=== PATIENT | female | born 1945 | race Caucasian/White ===

== ENCOUNTER → 2021-10-24 | Outpatient (CLI) | payer MEDICARE ==
--- NOTE | 2021-10-24 16:02 | XR ---
Thoracic spine HISTORY: M 52.6 Frontal and lateral views of the thoracic spine on 3 images There is loss of vertebral body height at the lower thoracic vertebral body levels at T9, T10, T12. B one mineralization is reduced. No significant retropulsion is evident. There is multilevel spondylosi s. Some loss of disc height present at intervertebral levels the midthoracic levels. Aorta is dense a nd possibly ectatic. There are coronary artery calcifications present. Question a lung nodule superim posed over the second anterior interspace seen on the frontal view. Degenerative disc changes noted i ncidentally in the cervical spine. IMPRESSION: Osteoporotic compression fractures, consider CT, MRI for additional evaluation. Possible lung nodule. Additional findings above, consider dedicated chest CT.
== END | disposition home or self-care (01) ==
LOC: RADXRMAIN 15:06
PROVIDERS: ATTEND Internal Medicine
DX: M80.88XA Other osteoporosis with current pathological fracture, vertebra(e), initial encounter for fracture (principal)
CPT/HCPCS: 72070

== ENCOUNTER → 2021-12-01 | Outpatient (CLI) | payer MEDICARE, OTHER ==
--- NOTE | 2021-12-04 08:03 | PE ---
EXAMINATION TYPE: PET CT fusion skull to thigh DATE OF EXAM: 12/01/2021 COMPARISON: Chest CT November 13, 2021 HISTORY: Solitary pulmonary nodule, abnormal CT. TECHNIQUE: Following the intravenous administration of 7.98 mCi of F-18 FDG, whole body images are p erformed from the skull base to the midthigh. Images are reviewed on the computer in the coronal, ax ial, and sagittal planes. Reconstructed rotating images are created on independent workstation and r eviewed on the computer. A localization and attenuation correction CT is performed in conjunction w ith the PET scan. Blood glucose level equals 107. SCAN: Initial Scan FINDINGS: SKULL BASE AND NECK: No areas of abnormal hypermetabolic uptake. CHEST, MEDIASTINUM, AND HILAR REGION: Mild underlying emphysematous change is redemonstrated. There i s abnormal 1.7 cm right upper lobe nodule with abnormal hypermetabolic uptake, max SUV is 3.97. No ad ditional areas of abnormal hypermetabolic uptake. ABDOMEN AND PELVIS: No adrenal masses. Normal excretion. Mild nonspecific bowel uptake in the pelvis. No areas of abnormal hypermetabolic uptake. OSSEOUS STRUCTURES: No areas of abnormal hypermetabolic uptake. OTHER CT: Nasal septum is deviated to left of midline. Moderate to severe calcified plaque bilateral carotid bulb level. Cardiomegaly with severe three-vessel coronary artery calcification redemonstrated. Moderate to sever e calcified plaque of the aorta extends into branch vessels. Sigmoid colonic diverticula. Moderate rectal fecal prominence. Poorly distended bladder. Abnormal non dependent air, correlate for recent Paz catheterization otherwise other etiologies such as fistula needs to be considered. IMPRESSION: Abnormal hypermetabolic uptake in the 1.7 cm right upper lobe nodule. No suspicious thora cic adenopathy or metastatic disease seen. Attention to the urinary bladder as noted above.
== END | disposition home or self-care (01) ==
LOC: RADPETMAIN 16:46
PROVIDERS: ATTEND Internal Medicine
DX: R91.1 Solitary pulmonary nodule (principal)
CPT/HCPCS: 78815; A9552

== ENCOUNTER 2021-12-21 12:55 | Day surgery (SDC) | payer MEDICARE, OTHER ==
[2021-12-19 13:20] VITALS: BMI 19.9
[~2021-12-21 12:55] MED LIST: ALBUTEROL NEB (CONC) 2.5 MG/0.5 ML INHALATION ONE; DEXAMETHASONE SOD PHOSPHATE 4 MG/ML 1 ML VIAL IV ONE; LACTATED RINGERS 1,000 ML IV SCH; LIDOCAINE 1% (10MG/ML) FOR IV START INTRADERMA PRN; LIDOCAINE 2% (PF) 20 MG/ML 5 ML VIAL INHALATION ONE; LIDOCAINE VISCOUS 300 MG/15 ML CUP MUCOUS MEM ONE; ONDANSETRON 4 MG/2 ML VIAL IVP ONE; SODIUM CHLORIDE 0.9% 1,000 ML IV SCH
[2021-12-21] MEDS ORDERED: ROCURONIUM 10 MG/ML (5 ML VIAL) IV ONE (14:48)
[2021-12-21] MEDS ORDERED: LIDOCAINE 1% INJ 10MG/ML (20 ML MDV) ONE (14:48)
[2021-12-21] MEDS ORDERED: SUCCINYLCHOLINE CHLORIDE 100 MG/5 ML SYR IV ONE (14:48)
[2021-12-21] MEDS ORDERED: NEOSTIGMINE 1 MG/ML 10 ML VIAL ONE (14:48)
[2021-12-21] MEDS ORDERED: GLYCOPYRROLATE 0.2 MG/ML 2 ML VIAL ONE (14:48)
[2021-12-21] MEDS ORDERED: fentaNYL (PF) 50 MCG/ML 2 ML AMP ONE (14:48)
[2021-12-21] MEDS ORDERED: PROPOFOL 10 MG/ML 20 ML VIAL IV ONE (14:48)
--- NOTE | 2021-12-21 16:02 | P.PCN ---
Date of Procedure: 12/21/21 Preoperative Diagnosis: RUL nodule Postoperative Diagnosis: RUL nodule Procedure(s) Performed: Navigational bronchoscopy, TBBX of the RUL nodule EBUS, TBNA of the right paratracheal lymph node Anesthesia: ROLANDOA Surgeon: Sai Lobo [facility] Lpn #1: Veronica Kelley Estimated Blood Loss (ml): 5 Pathology: other Condition: stable Disposition: same day Operative Findings: After obtaining the consent the patient was taken to the OR suite he was intubated and put on MV by anesthesia then the scope was advanced to the ET tube until the Trachea was seen and it was normal and then the fausto appears normal then the scope advanced to the left main and GREG LB1-LB3 were seen and no endobronchial lesions were seen then the scope advanced to the lingula and the LB4 and LB5 were seen and no endobronchial lesions were seen the scope retracted and advanced to the left lower lobes LB6 to LB12 were seen one by one and no endobronchial lesions, then the scope was retracted back to the fausto and advanced to the Right main and RUL RB1 and RB2 and RB3 were seen one by one and no endobronchial lesions were seen the scope then retracted and advanced to the BI and RML RB4 and RB5 were seen and no endobronchial lesions were seen then it was retracted and advanced to the RLL RB6 to RB12 were seen one by one and no endobronchial lesions. Using navigational guidance, the flexible bronchoscope was directed to the anterior segment of the right upper lobe. After accessing the basal segments, appropriate segments leading to the right upper lobe pulmonary nodule was identified and several transbronchial biopsies were obtained from the right upper lobe nodule. There was some the bronchial bleeding encountered that was less than 5 mL and the endobronchial stopped spontaneously without any intervention. Following that, the endobronchial ultrasound was inserted. Mediastinal lymph nodes were inspected and several visualized lymph nodes within the mediastinum were less than 5 mm in size. The largest mediastinal was around 8-9 mm in size and the right paratracheal area. Transbronchial aspirate of the right paratracheal lymph node was done with the was guidance and a total of 2 passes were obtained. The endobronchial ultrasound was removed. regular bronchoscope was inserted in the therapeutic airway suctioning was done. Patient was extubated and transferred recovery in stable condition. Chest x-rays to follow.
[2021-12-21 16:36] VITALS: TEMP 98
--- NOTE | 2021-12-21 16:50 | XR ---
EXAMINATION TYPE: XR chest 1V DATE OF EXAM: 12/21/2021 4:32 PM COMPARISON: CT chest 11/20/2021 TECHNIQUE: XR chest 1V Frontal view of the chest. CLINICAL INDICATION:Female, 76 years old with history of post bronch; FINDINGS: Lungs/Pleura: Persistent right mid lobe hazy airspace opacities. No evidence of pneumothorax. Right m id lobe mass seen on same-day CT chest less well-defined. There is flattening of diaphragms with incr eased lucency within the left upper lung apex. Pulmonary vascularity: Unremarkable. Heart/mediastinum: Cardiomediastinal silhouette is enlarged and stable. Atherosclerosis of the aorti c arch. Musculoskeletal: No acute osseous pathology. IMPRESSION: 1. No evidence of pneumothorax persistent right upper lobe airspace opacities, masses seen on CT ches t same day is less well appreciated given the hazy lung opacities. 2. COPD changes.
[2021-12-21 17:20] VITALS: BP 165/83
[2021-12-21 17:33] VITALS: PULSE 72; RESP 18
--- NOTE | 2021-12-21 21:46 | CT ---
EXAMINATION TYPE: CT Chest justina Yates Protocol DATE OF EXAM: 12/21/2021 COMPARISON: CT dated 11/13/2021 HISTORY: Navigational Bronchoscopy. CT DLP: 541 mGycm Automated exposure control for dose reduction was used. FINDINGS: Right upper lobe irregular lesion with spiculated margin likely representing a lung cancer measuring 14 x 15 mm, not significantly progressed compared to the previous. Slightly more inferior and central right upper lobe irregular opacity measuring 11 mm, not appreciated previously and could be metastat ic or due to inflammatory/infectious process. Minimal atelectasis in the right middle lobe. Left basa l subsegmental pulmonary atelectasis. Bronchial impaction is seen in the left lower lobe. Patent trachea and main bronchi. Minimal bilatera l pleural reaction. Extensive arterial atherosclerotic calcifications with coronary arterial calcific ations. Cardiomegaly, for correlation with echocardiographic results. No pericardial effusion. Subcen timeter mediastinal lymph nodes, nonspecific. Stable left adrenal adenoma. Progressive sclerotic mancia ges of the fractured T10 vertebral body with stable fractured T12, L1 and L2 vertebral bodies. IMPRESSION: CT for navigation bronchoscopy, details above.
== END 2021-12-21 17:57 | disposition home or self-care (01) ==
LOC: ORWHC2ENDO 12:55
PROVIDERS: ATTEND Internal Medicine Critical Care Medicine
DX: J42 Unspecified chronic bronchitis (principal); G89.29 Other chronic pain; M54.9 Dorsalgia, unspecified; R63.4 Abnormal weight loss; F17.210 Nicotine dependence, cigarettes, uncomplicated; I48.91 Unspecified atrial fibrillation; Z86.16 Personal history of COVID-19; Z87.01 Personal history of pneumonia (recurrent); Z82.49 Family history of ischemic heart disease and other diseases of the circulatory system; Z90.710 Acquired absence of both cervix and uterus; Z97.2 Presence of dental prosthetic device (complete) (partial); Z98.890 Other specified postprocedural states; Z83.6 Family history of other diseases of the respiratory system; Z80.8 Family history of malignant neoplasm of other organs or systems; Z79.899 Other long term (current) drug therapy; Z79.51 Long term (current) use of inhaled steroids
CPT/HCPCS: 88305; 71045; 71250; 31628; 31627; 31652; J2710; J2001; J3010; J0330; J2704; 31625

== ENCOUNTER → 2022-04-16 | Outpatient (CLI) | payer MEDICARE, OTHER ==
[2022-04-16 11:18] LABS: African American GFR (CKD) >90 (>60 ml/min/1.73 sqM); Blood Urea Nitrogen 17 mg/dL (7-17); Non-African American GFR(CKD) >90 (>60 ml/min/1.73 sqM)
--- NOTE | 2022-04-16 15:46 | CT ---
EXAMINATION TYPE: CT chest w con DATE OF EXAM: 04/16/2022 COMPARISON: CT dated 12/21/2021 HISTORY: Solitary pulmonary nodule CT DLP: 157.9 mGycm Automated exposure control for dose reduction was used. TECHNIQUE: CT scan of the chest is performed with IV Contrast, patient injected with 70 mL of Isovue 300. FINDINGS: LUNGS: Grossly stable irregular lesion in the right upper lobe measuring 13 x 15 mm. The more superio r irregular infiltration is slightly smaller measuring 8mm compared to 11 mm previously. Stable subse gmental atelectasis, focal infiltration and groundglass opacity in the middle lobe. Minimal left basa l posterior pulmonary atelectasis. No new suspicious or progressive lung lesion. Patent trachea and m ain bronchi. No pleural effusion MEDIASTINUM: There are no greater than 1 cm hilar or mediastinal lymph nodes. Stable subcentimeter me diastinal lymph nodes. Persistent severe cardiomegaly. Extensive coronary and arterial atheroscleroti c calcifications. No pericardial effusion is seen. OTHER: Stable left adrenal adenoma. Osteopenia. Stable multilevel lower thoracic and upper lumbar ve rtebral body collapse. IMPRESSION: Stable irregular right upper lobe nodule with a smaller more superior irregular infiltration as descr ibed above. No new suspicious or progressive lung lesion. No progressive lymph nodes in the chest. Ot her findings as described above.
== END | disposition home or self-care (01) ==
LOC: RADCTMAIN 10:42
PROVIDERS: ATTEND Internal Medicine
DX: R91.8 Other nonspecific abnormal finding of lung field (principal)
CPT/HCPCS: 82565; 84520; 71260; 36415; Q9967

== ENCOUNTER → 2022-08-02 | Outpatient (CLI) | payer MEDICARE, OTHER ==
[2022-08-02 18:33] LABS: African American GFR (CKD) 100.5 (60.0-200.0); Anion Gap 4.5 mmol/L (10.00-18.00); Carbon Dioxide 30.5 mmol/L (20.0-27.5); HCT 45.4 % (37.2-46.3); HGB 14.5 g/dL (12.0-15.0); MCH 30.1 pg (27.0-32.0); MCHC 31.9 g/dL (32.0-37.0); MCV 94.2 fL (80.0-97.0); Mean Platelet Volume 10.4 fL (9.5-12.2); NRBC Per 100 WBC 0 /100 WBCS (0.0-0.0); Non-African American GFR(CKD) 86.7 (60.0-200.0); Platelet Count 197 X 10*3/uL (140-440); Potassium 4.1 mmol/L (3.5-5.5); RBC 4.82 X 10*6/uL (4.10-5.20); RDW 14.4 % (11.5-14.5); WBC 6.49 X 10*3/uL (4.50-10.00)
== END | disposition home or self-care (01) ==
LOC: LABPAT 12:34
PROVIDERS: ATTEND Internal Medicine Interventional Cardiology
DX: Z01.812 Encounter for preprocedural laboratory examination (principal); I25.10 Atherosclerotic heart disease of native coronary artery without angina pectoris
CPT/HCPCS: 36415; 80051; 82565; 84520; 85027

== ENCOUNTER 2022-08-06 06:18 | Day surgery (SDC) | payer MEDICARE, OTHER ==
[~2022-08-06 06:18] MED LIST changes: -ALBUTEROL NEB (CONC) 2.5 MG/0.5 ML INHALATION ONE; +ALPRAZolam 0.25 MG TAB PO PRN; +ALPRAZolam 0.5 MG TAB PO PRN; -DEXAMETHASONE SOD PHOSPHATE 4 MG/ML 1 ML VIAL IV ONE; +HEPARIN SODIUM,PORCINE 10,000 UNIT in SODIUM CHLORIDE 0.9% 1,000 ML IRRIGATION PRN; +HEPARIN SODIUM,PORCINE 2,500 UNIT in SODIUM CHLORIDE 0.9% 250 ML IRRIGATION PRN; -LACTATED RINGERS 1,000 ML IV SCH; -LIDOCAINE 1% (10MG/ML) FOR IV START INTRADERMA PRN; -LIDOCAINE 2% (PF) 20 MG/ML 5 ML VIAL INHALATION ONE; -LIDOCAINE VISCOUS 300 MG/15 ML CUP MUCOUS MEM ONE; +NITROGLYCERIN SL TABS 0.4 MG TAB SUBLINGUAL PRN; -ONDANSETRON 4 MG/2 ML VIAL IVP ONE; -SODIUM CHLORIDE 0.9% 1,000 ML IV SCH; +SODIUM CHLORIDE 0.9% 1,000 ML in EMPTY BAG 1 BAG IV SCH
[2022-08-06 06:58] VITALS: TEMP 97.7
[2022-08-06] MEDS ORDERED: ASPIRIN 325 MG TAB PO ONE (07:00)
[2022-08-06] MEDS ORDERED: ATORVASTATIN 80 MG TAB PO ONE (07:00)
[2022-08-06] MEDS ORDERED: VERAPAMIL 2.5 MG/ML 2 ML AMP ONE (07:20)
[2022-08-06] MEDS: LIDOCAINE 1% INJ 10MG/ML (30 ML VIAL-PF) IV ONE ×2 (07:41→07:49)
[2022-08-06] MEDS ORDERED: MIDAZOLAM 2 MG/2 ML VIAL IV ONE (07:41)
[2022-08-06] MEDS ORDERED: fentaNYL (PF) 50 MCG/ML 2 ML AMP ONE (07:52)
[2022-08-06] MEDS ORDERED: fentaNYL (PF) 50 MCG/ML 2 ML AMP IV ONE (07:53)
[2022-08-06] MEDS ORDERED: IOPAMIDOL-370 125ML BTL INJ ONE (08:14)
[2022-08-06] MEDS ORDERED: RX INFO: IV CONTRAST WAS GIVEN 1 EACH MISC MISCELLANE PRN (08:17)
--- NOTE | 2022-08-06 08:25 | P.PCN ---
Date of Procedure: 08/06/22 Operative Findings: CARDIAC CATHETERIZATION PERFORMING PHYSICIAN: Johnny Mcmahan MD, RPVI PROCEDURE PERFORMED: 1. Selective right and left coronary angiogram 2. Left heart catheterization 3. Selective right common femoral artery angiogram INDICATION: This is a 77-year-old female patient was significant smoking as well as multiple risk factors for coronary artery disease was seen in the office which was symptomatic. She underwent myocardial perfusion imaging stress test and that showed moderate area of reversibility and in the light of that a heart catheterization was advised. Also she underwent an echocardiogram which revealed severe cardiomyopathy. COMPLICATION: None APPROACH: Right common femoral artery LEVEL OF SEDATION: Moderate to severe elevation of legs of 34 minutes PROCEDURE DESCRIPTION: After obtaining an informed consent, the patient was brought to cardiac concrete mixing plant laborer. Local anesthesia was performed using lidocaine subcutaneously. The right common femoral artery was cannulated using Seldinger technique, the guidewire passed easily, following that we advanced a 6 [place] sheath dilator assembly, the wire and dilator were removed and sheath was flushed. Selective right and left coronary angiogram using a 6-[place] JR4 and JL catheters. Following that we did left heart catheterization using 6-[place] pigtail catheter. The procedure was completed there was no complication. SELECTIVE CORONARY ANGIOGRAM: The right coronary artery: Large caliber vessel and a dominant vessel. The RCA is chronically occluded by the ostium and fills by collateral from the left coronary system. The RCA is extremely calcified Left main: Is calcified was mild disease only. The left circumflex: Large caliber vessel. The proximal LCx has mild disease only and gives rises into an OM1 which appeared to have mild disease only. The left circumflex in the midportion has critical lesion appeared to be in the range of 90-95%. The LCx is extremely calcified. Distally gives rises into 1 to which is a moderate caliber vessel appears to be angiographically normal The left anterior descending artery: The LAD is a large caliber vessel. The LAD is extremely calcified. The LAD has mild disease in the proximal portion. In the midportion by the bifurcation of a large diagonal branch has a lesion appeared to be in the range of 50-60%. The LAD distally appears to be angiographically normal. HEMODYNAMICS: The LVEDP was about 10 mmHg was no significant gradient across aortic valve CONCLUSION: 1. Extremely calcified right and left coronary system 2. 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 The RCA fills by collateral from the left coronary system 3. Critical disease involving the mid LCx 4. Intermediate lesion involving the mid LAD POSTPROCEDURE MANAGEMENT: Consider FFR of the LAD. If that ischemic consider refer the patient for bypass surgery. If the LAD is nonischemic consider proceeding with PCI of the LCx with adjunctive use of atherectomy. Subsequently the patient continues to be symptomatic consider proceeding with PCI of the [employer] the right coronary
[2022-08-06] MEDS ORDERED: SODIUM CHLORIDE 0.9% 1,000 ML IV SCH (08:30)
[2022-08-06 18:09] VITALS: BP 172/77; PULSE 78; RESP 16
== END 2022-08-06 14:27 | disposition home or self-care (01) ==
LOC: CATHCVL 06:18
PROVIDERS: ATTEND Internal Medicine Interventional Cardiology
DX: I25.10 Atherosclerotic heart disease of native coronary artery without angina pectoris (principal); I25.110 Atherosclerotic heart disease of native coronary artery with unstable angina pectoris; I25.84 Coronary atherosclerosis due to calcified coronary lesion; I25.82 Chronic total occlusion of coronary artery; I48.19 Other persistent atrial fibrillation; I25.5 Ischemic cardiomyopathy; I08.0 Rheumatic disorders of both mitral and aortic valves; I10 Essential (primary) hypertension; Z82.49 Family history of ischemic heart disease and other diseases of the circulatory system; J44.9 Chronic obstructive pulmonary disease, unspecified; F17.200 Nicotine dependence, unspecified, uncomplicated; Z79.01 Long term (current) use of anticoagulants; Z79.899 Other long term (current) drug therapy
CPT/HCPCS: 93458; C1769 ×4; C1894 ×2; J2250; J2001; J3010; Q9967

== ENCOUNTER 2022-08-22 06:49 | Inpatient (IN) | payer MEDICARE, OTHER ==
[2022-08-22] MEDS ORDERED: ALPRAZolam 0.5 MG TAB PO PRN (06:51)
[2022-08-22] MEDS ORDERED: ALPRAZolam 0.25 MG TAB PO PRN (06:51)
[2022-08-22] MEDS ORDERED: SODIUM CHLORIDE 0.9% 1,000 ML in EMPTY BAG 1 BAG IV SCH (06:51)
[2022-08-22] MEDS ORDERED: NITROGLYCERIN SL TABS 0.4 MG TAB SUBLINGUAL PRN (06:51)
[2022-08-22] MEDS ORDERED: ASPIRIN 325 MG TAB PO STA (06:51)
[2022-08-22 07:16] LABS: Basophils % (A) 0 %; Eosinophils % (A) 1 %; HCT 47.8 % (34.0-46.0); HGB 15.9 gm/dL (11.4-16.0); Lymphocytes # (A) 1.1 k/uL (1.0-4.8); Lymphocytes % (A) 16 %; MCH 31.1 pg (25.0-35.0); MCHC 33.4 g/dL (31.0-37.0); MCV 93.2 fL (80.0-100.0); Mean Platelet Volume 8.4; Monocytes # (A) 0.3 k/uL (0-1.0); Monocytes % (A) 4 %; Neutrophils # (A) 5.5 k/uL (1.3-7.7); Neutrophils % (A) 77 %; Platelet Count 206 k/uL (150-450); RBC 5.12 m/uL (3.80-5.40); WBC 7.2 k/uL (3.8-10.6)
[2022-08-22 07:25] LABS: African American GFR (CKD) >90 (>60 ml/min/1.73 sqM); Anion Gap 11 mmol/L; Blood Urea Nitrogen 11 mg/dL (7-17); Carbon Dioxide 29 mmol/L (22-30); Chloride 101 mmol/L (98-107); Glucose 112 mg/dL (74-99); Non-African American GFR(CKD) >90 (>60 ml/min/1.73 sqM); Potassium 3.8 mmol/L (3.5-5.1); Sodium 141 mmol/L (137-145)
[2022-08-22] MEDS ORDERED: HEPARIN SODIUM 1,000 UN/ML (10ML VL) ONE (08:31)
[2022-08-22] MEDS: MIDAZOLAM 2 MG/2 ML VIAL IV ONE ×3 (08:33→09:19)
[2022-08-22] MEDS ORDERED: LIDOCAINE 1% INJ 10MG/ML (30 ML VIAL-PF) SQ ONE (08:33)
[2022-08-22] MEDS ORDERED: HYDROmorphone 0.5 MG/0.5 ML SYRINGE IVP ONE (08:38)
[2022-08-22] MEDS: HEPARIN SODIUM 1,000 UN/ML (10ML VL) IV ONE ×3 (08:43→10:04)
[2022-08-22] MEDS ORDERED: fentaNYL (PF) 50 MCG/ML 2 ML AMP ONE (09:20)
[2022-08-22] MEDS ORDERED: fentaNYL (PF) 50 MCG/ML 2 ML AMP IV ONE (09:22)
[2022-08-22] MEDS ORDERED: niCARdipine 25 MG/10 ML VIAL ONE (09:40)
[2022-08-22] MEDS ORDERED: TICAGRELOR 90 MG TAB ONE (09:53)
[2022-08-22] MEDS ORDERED: TICAGRELOR 90 MG TAB PO ONE (09:55)
[2022-08-22] MEDS ORDERED: IOPAMIDOL-370 125ML BTL INJ ONE (10:26)
[2022-08-22] MEDS ORDERED: IOPAMIDOL-370 100ML BTL INJ ONE (10:32)
[2022-08-22] MEDS ORDERED: NON FORMULARY DRUG (Epinephrine [Primatene Mist] 11.7 GM Each) INHALATION PRN (10:44)
[2022-08-22] MEDS ORDERED: ATROPINE SULFATE 0.1 MG/ML 10ML SYRINGE IV PRN (10:45)
[2022-08-22] MEDS ORDERED: MAG HYDROX/AL HYDROX/SIMETH 30 ML CUP PO PRN (10:45)
[2022-08-22] MEDS ORDERED: RX INFO: IV CONTRAST WAS GIVEN 1 EACH MISC MISCELLANE PRN (10:45)
--- NOTE | 2022-08-22 10:59 | P.PCN ---
Date of Procedure: 08/22/22 Operative Findings: PERCUTANEOUS CORONARY INTERVENTION Performing physician Johnny Mcmahan M.D. Procedure Performed: 1. Successful stenting of the mid LAD using 3.0 x 18 mm Xience drug-eluting stent with an excellent angiographic results. 2. Successful stending of the mid LCx using 2.75 x 28 mm Xience drug-eluting stent with an excellent angiographic result. 3. Atherectomy of the left anterior descending artery 4. Atherectomy of the left circumflex coronary artery 5. Placement of Impella CP in the LV 6. FFR of the left anterior descending artery 7. Right common femoral artery angiogram 8. Ultrasound-guided access of the right common femoral artery Indication: This is a 77-year-old female patient was tach most recently with severe cardiomyopathy concerning for severe underlying coronary artery disease. She underwent a heart catheterization which revealed extremely calcified right and left coronary systems with chronic total occlusion of the RCA and critical disease involving the LCx and LAD. She is not a good surgical candidate giving her history of COPD as well as multiple comorbid conditions. In the light of that she was brought today to undergo PCI of the LCx and LAD Approach: Right common femoral artery Complications: None Level of Sedation: Moderate with a sedation length of 122 minute Procedure Discussion: After obtaining an informed consent the patient was brought to the cardiac cath lab radiology technician. The right common femoral artery was cannulated using micropuncture technique under ultrasound guidance, the micropuncture wire passed easily then I placed a 6-Namibian sheath. Before I placed a 6-Namibian sheath did selective right common femoral artery angiogram through the micropuncture sheath and that showed good position of the sheath in the right common femoral artery. At that point I placed a 6-Namibian sheath in the right common femoral artery. Anticoagulation was initiated using heparin with continuous ACT monitoring. Subsequently I decided to do one FFR of the LAD to assess the lesion in the LAD to see if flow- limiting or no before we decided to pursue with intervention on the LAD and before we place the Impella CAD. So after the Doppler wire was flushed and zeroed and after we equalized between the Doppler wire and the guiding catheter which was JL4 guiding catheter I did an iFR and that came in to be ischemic at 0.85. At that point I decided to intervene on the LAD lesion beside intervening on the LCx lesion. Because the patient ejection fraction is no I decided to place an Impella CP. At that point and after putting the Doppler wire and the guiding catheter from the left main coronary artery I did place 2 Perclose at 10:00 and 2:00 o'clock right common femoral artery. Subsequently I placed an 8- [place] sheath. After that I did exchange my 035 regular wire into a 35 stiff wire using JL4 guiding catheter we used before. Subsequently I did predilatation using 10-Namibian dilator and then 12-Namibian dilator and then I placed a 14-Namibian sheath under fluoroscopy guidance and the sheath was advanced all the way to the aorta under fluoroscopy guidance. At that point I did advance an 035 regular wire to the ascending aorta and then I advanced a pigtail catheter. Subsequently I did across the aortic valve. Then I did exchange my 035 wire into a 18 wire using the pigtail catheter then the pigtail catheter was withdrawn out. Then I did advance the Impella over the 018 wire to the LV where it was positioned in the mid left ventricle and no ectopy noted. Subsequently it was turned on. At that point anticoagulation was continues to be given based on the ACT. Subsequently I did access the 14-Namibian sheath using micropuncture needle, the micro-rupture wire passed easily then I placed a 6-Namibian sheath inside the 14-Namibian sheath. After that I did engage the left main using a CLS guiding catheter. I did wire the LAD using a run-through wire and the wire was positioned in the distal LAD and subsequently the wire was exchanged over the atherectomy wire using microcatheter. Atherectomy of the LAD was performed using the coronary geovani and using 3 runs under low speed. After that balloon angioplasty was performed using 2.5 mm shockwave balloon before I deployed 3.0 x 18 mm stent where the stent was positioned under fluoroscopy guidance and deployed under 18 natalie for 20 seconds. Postdilatation was performed using 4 mm noncompliant balloon. The following angiogram showed an excellent angiographic results for the LAD. For the left circumflex coronary artery I did wire the LCx using a whisper wire. At that point I did exchange the whisper wire into the atherectomy wire using the same microcatheter. Then after that I did atherectomy of the LCx again using 2 runs of slow speed. After that balloon angioplasty was performed using 2.5 mm balloon before I deployed 2.75 x 28 mm stent where the stent was positioned under fluoroscopy guidance and deployed under its nominal pressure. The final angiogram showed excellent angiographic results and the procedure was completed without any complication. Subsequently the Impella was pulled from the LV all the way outside the sheath then I did pull the 6-Namibian sheath from the 14-Namibian sheath and then I did a closed the groin using the 2 Perclose we placed at the beginning. By the end we achieved good hemostasis. Good pulse in the right groin and beneath the incision site. The procedure was completed without any complication Postprocedure Management: 1. The one antiplatelet therapy using aspirin and Brilinta for at least 6 months and preferably 12 month 2. Aggressive cholesterol control 3. Follow-up with a paced
[2022-08-22 14:20] VITALS: BMI 18.7
--- NOTE | 2022-08-22 14:27 | P.CNPUL ---
History of Present Illness Consult date: 08/22/22 Reason for consult: COPD Chief complaint: Status post stenting of mid LAD and left circumflex History of present illness: This is a 77-year-old female known history of severe obstructive lung disease, FEV1 of 55% of the predicted, she has hyperinflation and relatively low DLCO, FEV1/FVC is 80%, patient has been seeing me in the office for her COPD, and for her abnormal CT of the chest showing a solitary lung nodule suspicious for bronchogenic carcinoma, however previous navigational bronchoscopy and EBUS were negative hence we decided to monitor the nodule on a regular basis. Her last CT of the chest in April showed relative stability, and she is scheduled to see me again in the next few months for follow-up. At any rate patient was recently seen by the solder cream maker, and he was concerned about her cardiomyopathy and LV dysfunction, patient underwent cardiac catheterization and it showed extremely calcified right and left coronary systems with chronic total occlusion of the RCA, and critical disease involving the left circumflex and LAD. Considering the patient is not an ideal surgical candidate because of her COPD and comorbid conditions, patient underwent PCI of the left circumflex and LAD today. Postoperatively, patient was sent to the ICU, and I was asked to see her on consultation. Patient is relatively asymptomatic, denies any chest pain, denies any cough denies any wheezing, patient seems to be doing fairly well. She is on 2 L nasal cannula, normally the patient is not on oxygen at home. Review of Systems Constitutional: Negative HEENT: Negative Pulmonary: As noted in HPI patient has history of chronic obstructive lung disease, occasional cough and wheezing, dyspnea on exertion. Cardiac: As noted in HPI GI: Negative Genitourinary: Negative Musculoskeletal: Negative Endocrine: Negative Neurologic: Negative Hematologic: Negative Psychiatric: Negative Skin: Negative Past Medical History Past Medical History: Atrial Fibrillation, COPD, Hypertension, Pneumonia Additional Past Medical History / Comment(s): Beginning of COPD per pt., states was told she has atrial fib. Hx. of Covid 2020 & pneumonia., recent stress test, SOB w/exertion, spot on right lung-drSean monitoring, abd. hernia, current rectocele, occasional dysphagia History of Any Multi-Drug Resistant Organisms: None Reported Past Surgical History: Hysterectomy, Tonsillectomy Past Anesthesia/Blood Transfusion Reactions: Previous Problems w/ Anesthesia Additional Past Anesthesia/Blood Transfusion Reaction / Comment(s): Hard to awake, difficulty swallowing Past Psychological History: No Psychological Hx Reported Smoking Status: Current every day smoker Past Alcohol Use History: None Reported Additional Past Alcohol Use History / Comment(s): Smokes 1 PPD Past Drug Use History: None Reported - Past Family History Mother Family Medical History: No Reported History Medications and Allergies Home Medications Medication Instructions Recorded Confirmed Type Metoprolol Tartrate 25 mg PO DAILY 12/21/21 08/21/22 History Apixaban [Eliquis] 2.5 mg PO BID 08/03/22 08/22/22 History lisinopriL [Zestril] 2.5 mg PO DAILY 08/03/22 08/21/22 History Atorvastatin Calcium [Lipitor] 80 mg PO DAILY #90 tablet 08/06/22 08/21/22 Rx EPINEPHrine [Primatene Mist] 2 puff INHALATION DAILY PRN 08/06/22 08/22/22 History Aspirin 81 mg PO DAILY PRN 08/22/22 08/22/22 History Allergies Allergy/AdvReac Type Severity Reaction Status Date / Time No Known Allergies Allergy Verified 08/22/22 06:58 Physical Exam Vitals: Vital Signs Temp Pulse Pulse Resp BP BP BP 08/22/22 12:15 73 14 142/79 08/22/22 12:00 61 12 139/89 08/22/22 11:45 72 10 L 142/87 08/22/22 11:30 66 20 142/87 08/22/22 11:15 98.5 F 69 20 139/102 08/22/22 11:08 08/22/22 07:06 97.6 F 101 H 18 147/70 140/70 Pulse Ox 08/22/22 12:15 97 08/22/22 12:00 96 08/22/22 11:45 97 08/22/22 11:30 95 08/22/22 11:15 90 L 08/22/22 11:08 92 L 08/22/22 07:06 96 Intake and Output 08/21/22 08/22/22 08/22/22 22:59 06:59 14:59 Intake Total 1000 Balance 1000 Intake: IV 1000 Sodium Chloride 0.9% 1, 100 000 ml In Empty Bag 1 bag @ 75 mls/hr IV .[id number] [facility] Rx#:[id number] Other: # Voids 0 Weight 49.6 kg Physical Exam: Revealed 77-year-old female in no distress Head: Atraumatic, normocephalic. HEENT:[Neck is supple.] [No neck masses.] [No thyromegaly.] [No JVD.] Chest: [Clear throughout, diminished breath sounds at the bases no rhonchi no wheezes symmetrical chest expansion Cardiac Exam: [Normal S1 and S2, no S3 gallop, no murmur.] Abdomen: [Soft, nontender, no megaly, no rebound, no guarding, normal bowel sounds.] Extremities: [No clubbing, no edema, no cyanosis.] Neurological Exam: [No focal neurologic deficit.] Alert oriented 3. Psychiatric: Normal mood, affect and normal mental status examination. Skin: No rashes. Musculoskeletal: No deformities and no limitation in range of motion. Results - Laboratory Findings CBC and BMP: 08/22/22 07:10 08/22/22 07:10 Abnormal lab findings: Abnormal Labs 08/22/22 08/22/22 07:10 07:10 Hct 47.8 H Creatinine 0.50 L Glucose 112 H Assessment and Plan Assessment: Impression: Coronary arteriosclerosis, status post successful stenting of mid LAD and successful stenting of mid left circumflex Ischemic cardiomyopathy and LV dysfunction History of severe COPD Tobacco dependence syndrome Solitary lung nodule being monitored on outpatient basis, previous navigational bronchoscopy was nondiagnostic Paroxysmal atrial fibrillation Recommendation: Continue present supportive care measures Continue statins, Plavix, beta blockers, and aspirin patient is already on eliquis. Continue bronchodilators. Continue GI and DVT prophylaxis. Will continue to follow. Time with Patient: Greater than 30
[2022-08-22] MEDS ORDERED: IPRATROPIUM-ALBUTEROL 3 ML NEB INHALATION PRN (14:28)
[2022-08-22] MEDS: TICAGRELOR 90 MG TAB PO SCH (20:18)
[2022-08-22] MEDS: SYMBICORT 160-4.5 MCG INHALER INHALATION SCH (20:41)
[2022-08-23 04:32] VITALS: TEMP 97.8
[2022-08-23 06:27] LABS: Basophils % (A) 0 %; Eosinophils % (A) 0 %; HCT 45.3 % (34.0-46.0); HGB 14.9 gm/dL (11.4-16.0); Lymphocytes # (A) 0.9 k/uL (1.0-4.8); Lymphocytes % (A) 14 %; MCH 30.9 pg (25.0-35.0); MCV 93.7 fL (80.0-100.0); Mean Platelet Volume 8.1; Monocytes # (A) 0.4 k/uL (0-1.0); Monocytes % (A) 5 %; Neutrophils # (A) 5.2 k/uL (1.3-7.7); Neutrophils % (A) 78 %; Platelet Count 174 k/uL (150-450); RBC 4.83 m/uL (3.80-5.40); RDW 13.6 % (11.5-15.5); WBC 6.6 k/uL (3.8-10.6)
[2022-08-23 06:55] LABS: African American GFR (CKD) >90 (>60 ml/min/1.73 sqM); Anion Gap 5 mmol/L; Blood Urea Nitrogen 7 mg/dL (7-17); Calcium 8.4 mg/dL (8.4-10.2); Carbon Dioxide 28 mmol/L (22-30); Chloride 105 mmol/L (98-107); Glucose 94 mg/dL (74-99); Non-African American GFR(CKD) >90 (>60 ml/min/1.73 sqM); Potassium 3.6 mmol/L (3.5-5.1); Sodium 138 mmol/L (137-145)
[2022-08-23] MEDS: SYMBICORT 160-4.5 MCG INHALER INHALATION SCH (08:21)
[2022-08-23] MEDS: TICAGRELOR 90 MG TAB PO SCH (08:24)
--- NOTE | 2022-08-23 08:37 | P.DS ---
Providers Date of admission: 08/22/22 12:06 Attending physician: Johnny Mcmahan Consults: 08/22/22 10:46 Consult Physician Routine Consulting Provider: [facility] Consult Reason/Comments: Post Interventional Patient Do you want consulting provider notified?: Already Contacted Primary care physician: Burke Cespedes [facility] Course: The patient is a pleasant 77-year-old female patient with underwent yesterday successful stenting of the LAD and LCx. She was seen this morning. The right groin is soft and nontender without any bruises. The patient is going to be discharged home on dual antiplatelet therapy as well as a statin and I'll follow-up with the patient next week in the office Plan - Discharge Summary Discharge Rx Participant: No New Discharge Prescriptions: New Clopidogrel [Plavix] 75 mg PO DAILY #90 tablet Continue Metoprolol Tartrate 25 mg PO DAILY EPINEPHrine [Primatene Mist] 2 puff INHALATION DAILY PRN PRN Reason: sob Aspirin 81 mg PO DAILY PRN PRN Reason: Per Protocol lisinopriL [Zestril] 2.5 mg PO DAILY Apixaban [Eliquis] 2.5 mg PO BID Atorvastatin Calcium [Lipitor] 80 mg PO DAILY #90 tablet Discharge Medication List Metoprolol Tartrate 25 mg PO DAILY 12/21/21 [History] Apixaban [Eliquis] 2.5 mg PO BID 08/03/22 [History] lisinopriL [Zestril] 2.5 mg PO DAILY 08/03/22 [History] Atorvastatin Calcium [Lipitor] 80 mg PO DAILY #90 tablet 08/06/22 [Rx] EPINEPHrine [Primatene Mist] 2 puff INHALATION DAILY PRN 08/06/22 [History] Aspirin 81 mg PO DAILY PRN 08/22/22 [History] Clopidogrel [Plavix] 75 mg PO DAILY #90 tablet 08/23/22 [Rx] Follow up Appointment(s)/Referral(s): Johnny Mcmahan MD [STAFF PHYSICIAN] - 08/31/22 2:30 pm
[2022-08-23] MEDS ORDERED: ASPIRIN 81 MG PO SCH (09:00)
[2022-08-23] MEDS ORDERED: METOPROLOL TARTRATE 25 MG TAB PO SCH (09:00)
[2022-08-23] MEDS ORDERED: ATORVASTATIN 80 MG TAB PO SCH (09:00)
[2022-08-23] MEDS ORDERED: APIXABAN 2.5 MG TABLET PO SCH (09:00)
[2022-08-23 09:54] VITALS: BP 156/89; PULSE 80; RESP 18
--- NOTE | 2022-08-23 11:41 | P.PN ---
Subjective Progress Note Date: 08/23/22 Principal diagnosis: Status post stenting of mid LAD and left circumflex, postoperative day #1 This is a 77-year-old female known history of severe obstructive lung disease, FEV1 of 55% of the predicted, she has hyperinflation and relatively low DLCO, FEV1/FVC is 80%, patient has been seeing me in the office for her COPD, and for her abnormal CT of the chest showing a solitary lung nodule suspicious for bronchogenic carcinoma, however previous navigational bronchoscopy and EBUS were negative hence we decided to monitor the nodule on a regular basis. Her last CT of the chest in April showed relative stability, and she is scheduled to see me again in the next few months for follow-up. At any rate patient was recently seen by the diesel fleet mechanic, and he was concerned about her cardiomyopathy and LV dysfunction, patient underwent cardiac catheterization and it showed extremely calcified right and left coronary systems with chronic total occlusion of the RCA, and critical disease involving the left circumflex and LAD. Considering the patient is not an ideal surgical candidate because of her COPD and comorbid conditions, patient underwent PCI of the left circumflex and LAD today. Postoperatively, patient was sent to the ICU, and I was asked to see her on consultation. Patient is relatively asymptomatic, denies any chest pain, denies any cough denies any wheezing, patient seems to be doing fairly well. She is on 2 L nasal cannula, normally the patient is not on oxygen at home. Reevaluated today on 08/23/22, patient remains in the ICU, however she is being considered for discharge home today. Patient is asymptomatic, no cough no wheezing no shortness of breath no chest pain, patient is doing great. Labs today including CBC and basic metabolic profile are normal. Objective - Vital Signs Vital signs: Vital Signs Temp 97.8 F 08/23/22 08:00 Pulse 80 08/23/22 09:30 Resp 18 08/23/22 09:30 BP 156/89 08/23/22 09:30 Pulse Ox 93 L 08/23/22 09:30 FiO2 Intake & Output 08/22/22 08/23/22 08/23/22 18:59 06:59 18:59 Intake Total 1930 640 20 Output Total 300 2100 Balance 1630 -1460 20 Weight 49.6 kg 57.1 kg Intake: IV 1450 640 20 Sodium Chloride 0.9% 1, 550 640 20 000 ml In Empty Bag 1 bag @ 75 mls/hr IV .[id number] [facility] Rx#:[id number] Oral 480 Output: Urine 300 2100 Other: Voiding Method Bedpan Toilet Bedside Commode # Voids 1 1 # Bowel Movements 1 - Exam Physical Exam: Revealed 77-year-old female in no distress Head: Atraumatic, normocephalic. HEENT:[Neck is supple.] [No neck masses.] [No thyromegaly.] [No JVD.] Chest: [Clear throughout, diminished breath sounds at the bases no rhonchi no wheezes symmetrical chest expansion Cardiac Exam: [Normal S1 and S2, no S3 gallop, no murmur.] Abdomen: [Soft, nontender, no megaly, no rebound, no guarding, normal bowel sounds.] Extremities: [No clubbing, no edema, no cyanosis.] Neurological Exam: [No focal neurologic deficit.] Alert oriented 3. Psychiatric: Normal mood, affect and normal mental status examination. Skin: No rashes. Musculoskeletal: No deformities and no limitation in range of motion. - Labs CBC & Chem 7: 08/23/22 06:16 08/23/22 06:16 Labs: Abnormal Lab Results - Last 24 Hours (Table) 08/23/22 08/23/22 Range/Units 06:16 06:16 Lymphocytes # 0.9 L (1.0-4.8) k/uL Creatinine 0.42 L (0.52-1.04) mg/dL Assessment and Plan Assessment: Impression: Coronary arteriosclerosis, status post successful stenting of mid LAD and succe ssful stenting of mid left circumflex postoperative day #1 Ischemic cardiomyopathy and LV dysfunction History of severe COPD Tobacco dependence syndrome Solitary lung nodule being monitored on outpatient basis, previous navigational bronchoscopy was nondiagnostic Paroxysmal atrial fibrillation Recommendation: Agree with discharge planning Resume cardiac meds as per cardiology Resume bronchodilators as ordered previously and as given at home. Patient is to see me in October as scheduled Time with Patient: Less than 30
== END 2022-08-23 10:15 | disposition home or self-care (01) | DRG 221 ==
LOC: CATHCVL 06:49 → 2SICU 10:43 → CATHCVL 12:06 → 2SICU 12:06
PROVIDERS: ADMIT Internal Medicine Interventional Cardiology; ATTEND Internal Medicine Interventional Cardiology
PROC: 02HA3RJ Insertion of Short-term External Heart Assist System into Heart, Intraoperative, Percutaneous Approach (ICD-10-PCS; principal; 2022-08-22 08:30)
PROC: 027135Z Dilation of Coronary Artery, Two Arteries with Two Drug-eluting Intraluminal Devices, Percutaneous Approach (ICD-10-PCS; 2022-08-22 08:30)
PROC: 02C13ZZ Extirpation of Matter from Coronary Artery, Two Arteries, Percutaneous Approach (ICD-10-PCS; 2022-08-22 08:30)
PROC: 4A033BC Measurement of Arterial Pressure, Coronary, Percutaneous Approach (ICD-10-PCS; 2022-08-22 08:30)
DX: I25.10 Atherosclerotic heart disease of native coronary artery without angina pectoris (principal); I10 Essential (primary) hypertension; J44.9 Chronic obstructive pulmonary disease, unspecified; I25.82 Chronic total occlusion of coronary artery; I25.5 Ischemic cardiomyopathy; F17.210 Nicotine dependence, cigarettes, uncomplicated; I48.0 Paroxysmal atrial fibrillation; R91.1 Solitary pulmonary nodule; Z79.899 Other long term (current) drug therapy; Z79.01 Long term (current) use of anticoagulants; Z79.82 Long term (current) use of aspirin; Z86.16 Personal history of COVID-19
CPT/HCPCS: 0715T; 33990; 80048; 85025; 93799; 94640

== ENCOUNTER → 2022-10-11 | Outpatient (CLI) | payer MEDICARE, OTHER ==
[2022-10-11 13:05] LABS: African American GFR (CKD) >90 (>60 ml/min/1.73 sqM); Blood Urea Nitrogen 13 mg/dL (7-17); Non-African American GFR(CKD) >90 (>60 ml/min/1.73 sqM)
--- NOTE | 2022-10-11 14:08 | CT ---
EXAMINATION TYPE: CT chest w con DATE OF EXAM: 10/11/2022 COMPARISON: 04/16/2022 HISTORY: Follow-up pulmonary nodule CT DLP: 374.37 mGycm Automated exposure control for dose reduction was used. TECHNIQUE: CT scan of the chest is performed with IV Contrast, patient injected with 70 mL of Isovue 370. MIP I mages are created on CT scanner and reviewed. 3D reconstructed images are created on an independent w orkstation and reviewed. FINDINGS: LUNGS: There is a 2.3 x 1.5 cm irregular lesion in the right upper lobe recently measuring 13 x 15 mm . The more superior density is slightly smaller measuring 8mm and is stable. Linear changes left lung base consistent with scar atelectasis. Mild emphysematous changes are noted. Stable subsegmental atelectasis, focal infiltration and groundglass opacity in the middle lobe. Mini mal left basal posterior pulmonary atelectasis. No new suspicious or progressive lung lesion. Patent trachea and main bronchi. No pleural effusion . There is pleural-based thickening along the anterior segment right upper lobe. MEDIASTINUM: There are no greater than 1 cm hilar or mediastinal lymph nodes. No pericardial effusi on is seen. Persistent severe cardiomegaly. Extensive coronary and arterial atherosclerotic calcific ations. No pericardial effusion is seen. Dense atherosclerotic change of the aorta. The aortic arch m easures maximal dimension 3.4 cm compatible with patient. There also is ectasia of the proximal desce nding thoracic aorta measuring 3.3 cm. OTHER: Calcification in liver compatible with granuloma. Hypertrophic and degenerative changes spine with scoliosis. Small hiatal hernia. Bilateral thyroid nodules seen. Multiple compression fractures are seen with severe fracture involving the lower thoracic spine measuring near complete compression fracture stable from prior exam. Additional compression fractures near the thoracolumbar junction are also stable. Vertebral body hemangioma upper thoracic spine incidentally noted. IMPRESSION: 1.Spiculated malignant appearing lesion right upper lobe is increased in size now measuring 2.3 x 1.5 cm and presumably measuring 1.3 x 1.5 cm. 2. Aortic ectasia similar to the prior exam. Cardiomegaly and dense coronary artery calcification aga in noted. 3. Multinodular thyroid 3. Correlate for COPD.
== END | disposition home or self-care (01) ==
LOC: RADCTMAIN 12:18
PROVIDERS: ATTEND Internal Medicine
DX: E04.2 Nontoxic multinodular goiter (principal); I25.10 Atherosclerotic heart disease of native coronary artery without angina pectoris; I77.810 Thoracic aortic ectasia; R91.8 Other nonspecific abnormal finding of lung field; I51.7 Cardiomegaly
CPT/HCPCS: 82565; 84520; 71260; 36415; Q9967

== ENCOUNTER → 2023-02-04 | Outpatient (CLI) | payer MEDICARE, OTHER ==
--- NOTE | 2023-02-04 14:44 | CT ---
EXAMINATION TYPE: CT chest wo con DATE OF EXAM: 02/04/2023 COMPARISON: 10/11/2022 HISTORY: F/U for lung cancer CT DLP: 144.2 mGycm. Automated Exposure Control for Dose Reduction was Utilized. TECHNIQUE: CT scan of the thorax is performed without IV contrast. FINDINGS: LUNGS: There is a 1.7 x 1.4 cm irregular lesion which previously measured 2.3 x 1.5 cm in the right u pper lobe. The spiculated mass now has central lucency which may indicate response to therapy. The more superior density is slightly smaller measuring 8mm and is stable. Linear changes left lung b ase consistent with scar atelectasis stable. Mild emphysematous changes are noted. Stable subsegmental atelectasis, focal infiltration and groundg lass opacity in the middle lobe. Minimal left basal posterior pulmonary atelectasis. No new suspiciou s or progressive lung lesion. Patent trachea and main bronchi. No pleural effusion . There is pleural -based thickening along the anterior segment right upper lobe. There is a 2 mm nodule image 48 right lower lobe medial segment too small to characterize. . MEDIASTINUM: Lack of IV contrast is noted to limit evaluation for mediastinal and especially hilar ad enopathy. There are no greater than 1 cm hilar or mediastinal lymph nodes. No pericardial effusion is seen. Persistent severe cardiomegaly. Extensive coronary and arterial atherosclerotic calcifications . No pericardial effusion is seen. Dense atherosclerotic change of the aorta. The aortic arch measure s maximal dimension 3.4 cm compatible with patient. There also is ectasia of the proximal descending thoracic aorta measuring 3.3 cm. OTHER: Calcification in liver compatible with granuloma. Hypertrophic and degenerative changes spine with scoliosis. Small hiatal hernia. Bilateral thy roid nodules seen. Multiple compression fractures are seen with severe fracture involving the lower thoracic spine measuring near complete compression fracture stable from prior exam. Additional compression fractures near the thoracolumbar junction ar e also stable. Vertebral body hemangioma upper thoracic spine incidentally noted. IMPRESSION: 1. Interval reduction in size of the spiculated lesion right upper lobe now measuring 1.7 x 1.4 cm an d previously measuring 2.3 x 1.5 cm suggestive of response to therapy. 2. Multinodular thyroid changes 3. COPD 4. Persistent multiple compression fractures are stable with severe incomplete compression fracture l ower thoracic spine. A pathologic fracture not excluded. Consider follow-up MRI to assess for canal s tenosis. Do suspect a degree of retropulsion which is stable from prior exam.
== END | disposition home or self-care (01) ==
LOC: RADCTMAIN 11:58
PROVIDERS: ATTEND Radiology Radiation Oncology
DX: C34.11 Malignant neoplasm of upper lobe, right bronchus or lung (principal); J44.9 Chronic obstructive pulmonary disease, unspecified; M48.54XA Collapsed vertebra, not elsewhere classified, thoracic region, initial encounter for fracture; E04.2 Nontoxic multinodular goiter; F17.210 Nicotine dependence, cigarettes, uncomplicated
CPT/HCPCS: 71250

== ENCOUNTER → 2023-06-17 | Outpatient (CLI) | payer MEDICARE, OTHER ==
--- NOTE | 2023-06-17 12:30 | CT ---
EXAMINATION TYPE: CT chest wo con DATE OF EXAM: 06/17/2023 COMPARISON: Multiple previous with the most recent from 02/04/2023. HISTORY: Cancer follow-up. CT DLP: 144.6 mGycm. Automated Exposure Control for Dose Reduction was Utilized. TECHNIQUE: CT scan of the thorax is performed without IV contrast. FINDINGS: Mediastinum and Tatiana: There is no axillary, mediastinal or hilar lymphadenopathy. Pleural and Pericardial spaces: There are no pleural or pericardial effusions. Upper Abdomen: The visualized upper abdomen is unremarkable. Cardiovascular: There is severe vascular calcification throughout the thoracic aorta without evidence of aneurysmal dilation. There are severe coronary artery calcifications. Mild to moderate global car diomegaly is also present. Lung Parenchyma and Airways: There is a nodule with a marked area of lucency that measures up to 1.3 cm in diameter and is not significantly changed since the previous examination. Masses noted to be a larger spiculated nodule on 10/11/2022. This may relate to response to treatment. This could also pote ntially relate to an aspergilloma formation after treatment. There are no new or enlarging nodules ar e otherwise seen. Bones: Scattered significant compression deformities are seen throughout the spine which do not appea r significantly changed and are compatible with chronicity. The bones are diffusely demineralized. Th ere are no acute osseous abnormalities. IMPRESSION: 1. Unchanged nodule within the right upper lobe as described above. Given the appearance this likely relates to previous response to therapy and possibly relate to an aspergilloma given the appearance o n this examination. Follow-up should be according to the patient's tumor protocol. 2. Severe coronary artery calcifications.
== END | disposition home or self-care (01) ==
LOC: RADCTMAIN 12:07
PROVIDERS: ATTEND Radiology Radiation Oncology
DX: C34.11 Malignant neoplasm of upper lobe, right bronchus or lung (principal); F17.210 Nicotine dependence, cigarettes, uncomplicated; I25.10 Atherosclerotic heart disease of native coronary artery without angina pectoris; R91.8 Other nonspecific abnormal finding of lung field
CPT/HCPCS: 71250

== ENCOUNTER 2023-08-27 09:27 | Day surgery (SDC) | payer MEDICARE, OTHER ==
[2023-08-22 09:16] VITALS: BMI 18.8
[~2023-08-27 09:27] MED LIST changes: -ALPRAZolam 0.25 MG TAB PO PRN; -ALPRAZolam 0.5 MG TAB PO PRN; -HEPARIN SODIUM,PORCINE 10,000 UNIT in SODIUM CHLORIDE 0.9% 1,000 ML IRRIGATION PRN; -HEPARIN SODIUM,PORCINE 2,500 UNIT in SODIUM CHLORIDE 0.9% 250 ML IRRIGATION PRN; +LACTATED RINGERS 1,000 ML IV SCH; +LIDOCAINE 1% (10MG/ML) FOR IV START INTRADERMA PRN; -NITROGLYCERIN SL TABS 0.4 MG TAB SUBLINGUAL PRN; -SODIUM CHLORIDE 0.9% 1,000 ML in EMPTY BAG 1 BAG IV SCH
[2023-08-27 10:16] VITALS: TEMP 97.7
[2023-08-27] MEDS ORDERED: LIDOCAINE 2% (PF) 20 MG/ML 5 ML VIAL ONE (11:09)
[2023-08-27] MEDS ORDERED: PROPOFOL 10 MG/ML 20 ML VIAL IV ONE (11:09)
--- NOTE | 2023-08-27 11:24 | P.PCN ---
Date of Procedure: 08/27/23 Procedure(s) Performed: BRIEF HISTORY: Patient is a 78-year-old, pleasant, white female scheduled for an upper endoscopy as a part of evaluation of dysphagia to solids for the last 1 year duration associated weight loss of almost 30 pounds. She also complains of persistent nausea.. PROCEDURE PERFORMED: Esophagogastroduodenoscopy with biopsy. PREOPERATIVE DIAGNOSIS: Intermittent dysphagia to solids, progressive weight loss and persistent nausea. IV sedation per anesthesia. PROCEDURE: After informed consent was obtained, the patient was brought into the endoscopy unit. IV sedation was administered by Anesthesia under continuous monitoring. Initially the Olympus GIF-140 video endoscope was inserted into the mouth. Esophagus intubated without any difficulty. It was gradually advanced into the stomach and duodenum and carefully examined. The bulb and the second part of the duodenum appeared normal. Abscesses were done from the duodenum to rule out celiac disease. The scope at this time was withdrawn to the stomach, adequately insufflated with air, and upon careful examination, mucosa of the antrum and gastritis and biopsies were done from this area. Mucosa of the, body, cardia and the fundus appeared normal. The scope was then withdrawn into the esophagus. Hiatal hernia noted. The GE junction was located at 37 cm from the incisors. The esophagus appeared normal. There were no erosions or ulcerations seen . Biopsies were done from the distal esophagus. The proximal cervical esophagus was carefully examined and appeared normal and the patient tolerated the procedure well. IMPRESSION: 1. Small hiatal hernia. 2. No evidence of esophagitis or esophageal stricture 3. Mild antral gastritis. RECOMMENDATIONS: The findings of this examination were discussed with the patient as well as her family. She was advised to follow with the biopsy results. She'll be seen in office in 2 weeks..
[2023-08-27 12:18] VITALS: BP 132/70; PULSE 69; RESP 20
== END 2023-08-27 12:07 | disposition home or self-care (01) ==
LOC: ORWHC2ENDO 09:27
PROVIDERS: ATTEND Internal Medicine Gastroenterology
DX: K29.50 Unspecified chronic gastritis without bleeding (principal); K21.00 Gastro-esophageal reflux disease with esophagitis, without bleeding; K44.9 Diaphragmatic hernia without obstruction or gangrene; I25.10 Atherosclerotic heart disease of native coronary artery without angina pectoris; I49.9 Cardiac arrhythmia, unspecified; I10 Essential (primary) hypertension; E78.5 Hyperlipidemia, unspecified; I48.91 Unspecified atrial fibrillation; J44.9 Chronic obstructive pulmonary disease, unspecified; Z79.02 Long term (current) use of antithrombotics/antiplatelets; Z79.1 Long term (current) use of non-steroidal anti-inflammatories (NSAID); Z79.01 Long term (current) use of anticoagulants; Z79.891 Long term (current) use of opiate analgesic; Z79.51 Long term (current) use of inhaled steroids; Z79.899 Other long term (current) drug therapy; Z88.8 Allergy status to other drugs, medicaments and biological substances; Z95.5 Presence of coronary angioplasty implant and graft; Z85.118 Personal history of other malignant neoplasm of bronchus and lung
CPT/HCPCS: 88305; 43239; J2704; J2001

== ENCOUNTER → 2023-10-10 | Outpatient (CLI) | payer MEDICARE, OTHER ==
--- NOTE | 2023-10-10 12:05 | CT ---
EXAMINATION TYPE: CT chest wo con DATE OF EXAM: 10/10/2023 COMPARISON: Prior chest CT June 17, 2023 and older studies. HISTORY: lung CA CT DLP: 478 mGycm. Automated Exposure Control for Dose Reduction was Utilized. TECHNIQUE: CT scan of the thorax is performed without IV contrast. FINDINGS: LUNGS: A background Mild/moderate underlying emphysematous changes redemonstrated. Stable roughly 1.0 cm nodule with anterior groundglass opacity in the right upper lobe axial image 20. No new or enlarg ing greater than 5 mm pulmonary nodules. Mild bibasilar linear scarring and/or atelectasis is redemon strated. No pleural effusion or pneumothorax is seen bilaterally. MEDIASTINUM: Lack of IV contrast is noted to limit evaluation for mediastinal and especially hilar ad enopathy. There are no definitive new Greater than 1 cm mediastinal lymph nodes. Heart size upper corbett its of normal. No pericardial effusion is seen. Severe three-vessel coronary artery calcification red emonstrated. Moderate biatrial dilatation again seen. Moderate to severe Atherosclerotic change to th e descending aorta redemonstrated. OTHER: Osseous structures are demineralized. Persistent severe compression type fracture involving th e T10 vertebra. Persistent mild to moderate compression type fractures involving the T12 and L2 verte bra. IMPRESSION: Stable 1.0 cm nodule with anterior groundglass opacity at site of prior lucency right upp er lobe favoring treated neoplasm. No suspicious new or enlarging masses.
== END | disposition home or self-care (01) ==
LOC: RADCTMAIN 10:54
PROVIDERS: ATTEND Radiology Radiation Oncology
DX: C34.11 Malignant neoplasm of upper lobe, right bronchus or lung (principal); R91.8 Other nonspecific abnormal finding of lung field
CPT/HCPCS: 71250

== ENCOUNTER → 2024-04-20 | Outpatient (CLI) | payer MEDICARE, OTHER ==
--- NOTE | 2024-04-20 13:22 | CT ---
EXAMINATION TYPE: CT chest wo con DATE OF EXAM: 04/20/2024 COMPARISON: 10/20/2023 HISTORY: f/u lung cancer CT DLP: 137.[address] of the chest was performed with lung and mediastinal window settings submitted. The la ck of contrast limits evaluation of the vascular, mediastinal and parenchymal structures including th e upper abdomen. LUNGS: The lungs are clear and free of infiltrate. No atelectasis. Right upper lobe pulmonary nodule slightly larger in size and currently measures 1.5 x 1.1 cm versus 1.0 cm previously. No additional n odules identified with certainty. Areas of remote groundglass density persists likely related to personal support worker jami postinflammatory change. No pleural effusion. No CT evidence of interstitial lung disease. MEDIASTINUM/SNOW: Thoracic aorta is of normal caliber with limited evaluation given lack of contrast . The heart is not enlarged. No evidence for mediastinal mass. No lymph nodes greater than 1cm. UPPER ABDOMEN: No significant abnormality is seen. OTHER: No significant other abnormality. IMPRESSION: 1. Right upper lobe pulmonary nodule slightly larger in size and currently measures 1.5 x 1.1 cm demet[place] 1.0 cm previously. No additional nodules identified with certainty.
== END | disposition home or self-care (01) ==
LOC: RADCTMAIN 12:05
PROVIDERS: ATTEND Radiology Radiation Oncology
DX: C34.11 Malignant neoplasm of upper lobe, right bronchus or lung (principal); R91.1 Solitary pulmonary nodule; F17.210 Nicotine dependence, cigarettes, uncomplicated
CPT/HCPCS: 71250

== ENCOUNTER → 2024-08-24 | Outpatient (CLI) | payer MEDICARE, OTHER ==
--- NOTE | 2024-08-24 12:57 | CT ---
EXAMINATION TYPE: CT chest wo con CT DLP: 148.40 mGycm, Automated exposure control for dose reduction was used. DATE OF EXAM: 08/24/2024 12:14 PM COMPARISON: Multiple CT chest with most recent 04/20/2024. CLINICAL INDICATION:Female, 79 years old with history of C34.11; PHH, F/u lung ca, routine check up. TECHNIQUE: Multiple axial images were obtained through the chest without IV contrast. Lack of IV or o ral contrast limits evaluation of solid and hollow organ viscera. . Coronal and sagittal reformats re viewed. FINDINGS: LUNGS/ PLEURA: No pleural effusion, pneumothorax, focal consolidation. Mild underlying emphysematous changes redemonstrated. Mild bibasilar linear scarring and atelectasis are demonstrated. Marginal in crease in size of right upper lobe 1.2 cm solid pulmonary nodule (series 4 image 19). Previously 1.1 cm. Similar surrounding groundglass opacities. Increased size of medial left anterior midline 1.3 cm nodular opacity (series 4, image 32), previously 1.1 cm. No new pulmonary nodules. AIRWAY: Patent and unremarkable.. HEART: The heart is mildly increased in size.. No pericardial effusion. Severe coronary artery calcif ications. MEDIASTINUM: No gross evidence of adenopathy. VASCULATURE: No aortic aneurysm. Severe atherosclerotic calcification of the aorta and its branches. MUSCULOSKELETAL: No acute osseous abnormalities. Diffuse bone demineralization. Persistent severe com pression type fracture involving the T10 vertebra. Persistent mild to moderate compression type fract ures involving the T12 and L2 vertebra. SOFT TISSUES/LYMPH NODES: Unremarkable. LOWER NECK: No significant findings. UPPER ABDOMEN: No significant findings. IMPRESSION: Marginal increase size of right upper lobe and left anterior midline pulmonary nodular opacities. Fur ther evaluation with PET/CT is recommended. [facility], , 08/24/2024 12:55 PM
== END | disposition home or self-care (01) ==
LOC: RADCTMAIN 11:44
PROVIDERS: ATTEND Radiology Radiation Oncology
CPT/HCPCS: 71250

== ENCOUNTER → 2024-09-10 | Outpatient (CLI) | payer MEDICARE, OTHER ==
--- NOTE | 2024-09-13 20:40 | PE ---
EXAMINATION TYPE: PET CT fusion skull to thigh DATE OF EXAM: 09/10/2024 COMPARISON: CT chest 08/24/2024 Prior PET/CT: 12/01/2021 HISTORY: Lung nodule TECHNIQUE: Following the intravenous administration of 10.56 mCi of F-18 FDG, whole body images are performed from the skull base to the midthigh. Images are reviewed on the computer in the coronal, a xial, and sagittal planes. Reconstructed rotating images are created on independent workstation and reviewed on the computer. A localization and attenuation correction CT is performed in conjunction with the PET scan. DLP: 180.15 mGycm SCAN: Subsequent Blood glucose: 100 mg/dL Average Mediastinum SUV: 1.64 Average Liver SUV: 2.05 FINDINGS: NECK: No abnormal uptake THORAX: There is intense uptake within the small nodule anterior to the heart, image 100, SUV 6.83. F indings suspicious for metastasis. Previous lateral right upper lobe nodule SUV currently 1.1 diminished from comparison ABDOMEN: No abnormal uptake PELVIS: No abnormal uptake OSSEOUS STRUCTURES: No abnormal uptake LOCALIZATION CT: Previous right upper lobe nodule is diminished in size. The nodule anterior to the h eart is new COMPARISON: Previous lateral right lung nodule not identified. Nodule anterior to the heart is new. IMPRESSION: 1. New nodule within the medial left lung anterior to the heart with increased uptake suspicious for metastasis. 2. Prior right upper lobe nodule does not have suspicious uptake and may be smaller than comparison [facility], , 09/13/2024 8:38 PM
== END | disposition home or self-care (01) ==
LOC: RADPETMAIN 11:43
PROVIDERS: ATTEND Radiology Radiation Oncology
DX: C34.11 Malignant neoplasm of upper lobe, right bronchus or lung (principal); F17.210 Nicotine dependence, cigarettes, uncomplicated; R91.1 Solitary pulmonary nodule
CPT/HCPCS: 78815; A9552

== ENCOUNTER → 2024-11-02 | Outpatient (CLI) | payer MEDICARE, OTHER ==
--- NOTE | 2024-11-05 22:20 | CT ---
EXAMINATION TYPE: CT angio lower extremity RT DATE OF EXAM: 11/02/2024 5:22 PM COMPARISON: None. CLINICAL INDICATION: Female, 79 years old with history of S81.801A UNSPECIFIED OPEN WOUND, RIGHT LOWE R LEG,; PHH, non-healing wound to right lower leg TECHNIQUE: Multiple thin slice sub-millimeter images were obtained after administration of contrast. 3-D reconstructed images and maximum intensity projection images were obtained. CT angio lower extre mity RT CT Contrast: Contrast used:100 mL of Isovue 300 with IV Contrast, Oral contrast used: None CT DLP: 1076.1 mGycm, Automated exposure control for dose reduction was used. FINDINGS: Exam is limited to the right lower extremity. Internal and external iliac arteries are patent. Vascul ar calcification is present. Significant stenosis is not identified. Common femoral arteries and prof unda femoris origin superficial femoral artery are patent. There are scattered calcifications within the superficial femoral artery without significant stenosis. Vascular calcifications within the popli teal artery. Some mild narrowing may be within the mid to distal portion Vascular calcifications at the origin of the common trunk of the trifurcation vessels. Vascular calci fications in the proximal right anterior tibial artery with narrowing. This may be nearly occluding t he proximal anterior tibial artery. There is poor visualization of the peroneal and posterior tibial arteries. Anterior tibial artery appears occluded above the calf posterior tibial artery is patent to the ankle. Peroneal artery and anterior tibial artery was not identified at the ankle. IMPRESSION: 1. 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 Posterior tibial artery appears to extend to the ankle with a small caliber vessel. 2. Moderate stenosis mid popliteal artery. [facility], , 11/05/2024 10:17 PM
== END | disposition home or self-care (01) ==
LOC: RADCTMAIN 15:14
PROVIDERS: ATTEND Internal Medicine
DX: S81.801A Unspecified open wound, right lower leg, initial encounter (principal); I73.9 Peripheral vascular disease, unspecified; I70.8 Atherosclerosis of other arteries; X58.XXXA Exposure to other specified factors, initial encounter
CPT/HCPCS: 73706; Q9967

== ENCOUNTER → 2025-01-21 | Outpatient (CLI) | payer MEDICARE, OTHER ==
--- NOTE | 2025-01-21 12:56 | CT ---
EXAMINATION TYPE: CT chest wo con DATE OF EXAM: 01/21/2025 COMPARISON: PET CT fusion 09/10/24 CLINICAL INDICATION: Female, 79 years old with history of R91.1, C34.11; PHH, lung ca/ lung nodule TECHNIQUE: CT scan of the thorax is performed without IV contrast. CT DLP: [address] CTDI: mGy Automated exposure control for dose reduction was used. FINDINGS: LUNGS: Nonvisualization of previously noted 1.3 cm nodule left upper lobe anteriorly with strandy att enuation seen at this point in time. Correlate for wedge resection. No recurrent nodule in this regio n. There is additional nodule within the right upper lobe measuring 1.1 cm versus 1.2 cm previously. This nodule did not demonstrate suspicious uptake on prior PET/CT. There is surrounding strandy atten uation this may reflect postinflammatory process. The lungs are otherwise clear. MEDIASTINUM: Lack of IV contrast is noted to limit evaluation for mediastinal and especially hilar ad enopathy. There are no definitive greater than 1 cm hilar or mediastinal lymph nodes. No cardiomega ly or pericardial effusion is seen. HEART: The heart is enlarged.. Coronary artery calcifications with stents suspected. Unfolding and a theromatous change of the thoracic aorta. OTHER: No additional significant abnormality is seen. IMPRESSION: 1.Nonvisualization of previously noted 1.3 cm nodule left upper lobe anteriorly with strandy attenuat ion seen at this point in time. Correlate for wedge resection. No recurrent nodule in this region. 2. Stable chronic nodularity and surrounding stranding attenuation right upper lobe which could be po stinflammatory in nature. Follow-up recommendations for incidental pulmonary nodules are per [employer] or [employer]. [facility], , 01/21/2025 12:53 PM
== END | disposition home or self-care (01) ==
LOC: RADCTMAIN 12:26
PROVIDERS: ATTEND Radiology Radiation Oncology
DX: C34.11 Malignant neoplasm of upper lobe, right bronchus or lung (principal); R91.1 Solitary pulmonary nodule; F17.210 Nicotine dependence, cigarettes, uncomplicated
CPT/HCPCS: 71250

== ENCOUNTER → 2025-04-16 | Outpatient (CLI) | payer MEDICARE, OTHER ==
--- NOTE | 2025-04-16 14:11 | CT ---
EXAMINATION TYPE: CT chest wo con DATE OF EXAM: 04/16/2025 COMPARISON: 01/21/2025 CLINICAL INDICATION: Female, 79 years old with history of C34.11,F17.210,R91.1 SOLITARY PULMONARY NOD ULEC34.11,F17.210; PHH, F/U Lung nodule. TECHNIQUE: CT scan of the thorax is performed without IV contrast. CT DLP: [address] CTDI: mGy Automated exposure control for dose reduction was used. FINDINGS: The focal area of interstitial scarring and 2 nodules in the right upper lobe are stable. There is a left upper lobe nodule which has increased from 4.7 mm to 9.8 mm. There is no new lung consolidation. There is no pleural effusion. There is moderate to marked cardiomegaly. There is no mediastinal hilar or axillary adenopathy. There are marked calcifications of the aorta and arteries in the upper abdomen. There is no focal osseous lesion.. IMPRESSION: 1. Growing nodule in the left upper lobe from 4.7 to 9.8 mm. The possibility of recurrent neoplasm is not excluded. PET scan may be useful for further evaluation. 2. stable nodules with interstitial scarring in the right upper lobe. 3. moderate to marked cardiomegaly. [facility], , 04/16/2025 2:08 PM
== END | disposition home or self-care (01) ==
LOC: RADCTMAIN 13:32
PROVIDERS: ATTEND Radiology Radiation Oncology
DX: R91.1 Solitary pulmonary nodule (principal); C34.11 Malignant neoplasm of upper lobe, right bronchus or lung; F17.210 Nicotine dependence, cigarettes, uncomplicated; J98.4 Other disorders of lung; R91.8 Other nonspecific abnormal finding of lung field; I51.7 Cardiomegaly
CPT/HCPCS: 71250